=== PATIENT | female | born 1990 | race African-American/Black ===

== ENCOUNTER 2016-10-26 20:57 | Emergency (ER) | payer MEDICAID ==
--- NOTE | 2016-10-26 21:44 | ED Physician Documentation ---
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 She has subsequently developed other symptoms including whole body pain, headache, nausea and vomiting and diarrhea that has pain in the stomach that is relieved by vomiting. She has been sick enough that she is unable to get out of bed to care for her 5 year old son. Review of Systems Constitutional: reports: Fever, Chills Eyes: denies: Decreased vision Ears: denies: Ear pain Nose: reports: Congestion Throat: denies: Sore throat Cardiac: denies: Chest pain / pressure, Palpitations Respiratory: denies: Dyspnea, Cough GI: reports: Abdominal Pain, Nausea, Vomiting : reports: Dysuria, Frequency Skin: denies: Rash Musculoskeletal: reports: Back pain. denies: Neck pain, Extremity pain Neurologic: reports: Generalized weakness. 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 : None HEENT: None Psych: None Musculoskeletal: None Derm: None - Past Surgical History Past Surgical History: Yes - Present Medications Home Medications: Ambulatory Orders Medication Instructions Recorded Confirmed HYDROcod/ACETAM 5/325 [[place] 5/325] 1 - 2 ea PO Q6H PRN #15 tablet 10/27/16 Ondansetron Odt [Zofran] 4 mg TL Q6H PRN #10 tablet 10/27/16 Sulfamethoxazole/Trimethoprim 1 each PO BID #14 tablet 10/27/16 [Sulfamethoxazole-Tmp Ds Tablet] - Allergies Allergies/Adverse Reactions: Allergies Allergy/AdvReac Type Severity Reaction Status Date / Time No Known Drug Allergies Allergy Verified 10/26/16 21:03 - Social History Does the pt smoke?: Yes Smoking Status: Current every day smoker Does the pt drink ETOH?: No Does the pt have substance abuse?: No - Immunizations Immunizations are current?: No - POLST Patient has POLST: No PD ED PE NORMAL - Vitals Vital signs reviewed: Yes (normal ) - General General: Alert and oriented X 3, No acute distress, Well developed/nourished - HEENT HEENT: Atraumatic, PERRL, EOMI, Ears normal, Moist mucous membranes, Pharynx benign, Dentition benign - Neck Neck: Supple, no meningeal sign, No bony TTP - Cardiac Cardiac: RRR, No murmur - Respiratory Respiratory: No respiratory distress, Clear bilaterally - Abdomen Abdomen: Soft, Other (mild epigastric tenderness. with audible bruit in the midline and extending laterally bilateral to both kidneys. ) - Back Back: No spinal TTP, Other (mild R CVA tenderness) - Derm Derm: Normal color, Warm and dry, No rash - Extremities Extremities: No deformity, No edema - Neuro Neuro: Alert and oriented X 3, emergency technician 2-12 intact, No motor deficit, No sensory deficit, Normal speech - Psych Psych: Normal mood, Normal affect Results - Vitals Vitals: Vital Signs - 24 hr 10/26/16 10/26/16 10/26/16 21:03 22:36 23:55 Temperature 37.4 C 36.5 C Heart Rate 99 77 80 Respiratory 16 100 H 16 Rate Blood Pressure 110/69 114/69 121/76 O2 Saturation 100 15 L 100 10/27/16 10/27/16 00:45 01:06 Temperature 36.5 C 37.5 C Heart Rate 78 83 Respiratory 15 18 Rate Blood Pressure 115/76 121/64 O2 Saturation 100 97 Oxygen O2 Source Room air - Labs Labs: Laboratory Tests 10/26/16 10/26/16 10/26/16 21:48 21:48 21:48 WBC 10.3 RBC 4.30 Hgb 13.2 Hct 38.1 MCV 88.5 MCH 30.6 MCHC 34.6 RDW 14.0 Plt Count 187 MPV 9.0 Neut # Not Reportable Lymph # Not Reportable [place] # Not Reportable Eos # Not Reportable Baso # Not Reportable Absolute Nucleated RBC Not Reportable Total Counted 100 Band Neuts % (Manual) 6 Neutrophils # (Manual) 8.5 H Lymphocytes # (Manual) 0.9 L Monocytes # (Manual) 0.8 Nucleated RBCs Not Reportable Differential Comment MANUAL DIFFERENTIAL Platelet Estimate NORMAL (130-450,000) Platelet Morphology NORMAL APPEARANCE RBC Morph Micro Appear NORMAL APPEARANCE Sodium 131 L Potassium 2.5 L* Chloride 95 L Carbon Dioxide 23 Anion Gap 13.0 BUN 15 Creatinine 1.3 H Estimated GFR (MDRD) 60 L Glucose 97 Calcium 8.5 Total Bilirubin 1.1 H AST 33 ALT 39 Alkaline Phosphatase 49 Troponin I < 0.04 Total Protein 7.8 Albumin 3.3 Globulin 4.5 H Albumin/Globulin Ratio 0.7 L Lipase < 10 L Urine Color Urine Clarity Urine pH Ur Specific [place] Urine Protein Urine Glucose (UA) Urine Ketones Urine Occult Blood Urine Nitrite Urine Bilirubin Urine Urobilinogen Ur Leukocyte Esterase Urine RBC Urine WBC Ur Squamous Epith Cells Urine Bacteria Ur Microscopic Review Urine Culture Comments Urine HCG, Qual 10/26/16 22:10 WBC RBC Hgb Hct MCV MCH MCHC RDW Plt Count MPV Neut # Lymph # [place] # Eos # Baso # Absolute Nucleated RBC Total Counted Band Neuts % (Manual) Neutrophils # (Manual) Lymphocytes # (Manual) Monocytes # (Manual) Nucleated RBCs Differential Comment Platelet Estimate Platelet Morphology RBC Morph Micro Appear Sodium Potassium Chloride Carbon Dioxide Anion Gap BUN Creatinine Estimated GFR (MDRD) Glucose Calcium Total Bilirubin AST ALT Alkaline Phosphatase Troponin I Total Protein Albumin Globulin Albumin/Globulin Ratio Lipase Urine Color YELLOW Urine Clarity CLOUDY Urine pH 6.0 Ur Specific [place] 1.015 Urine Protein 100 H Urine Glucose (UA) NEGATIVE Urine Ketones 15 H Urine Occult Blood MODERATE H Urine Nitrite NEGATIVE Urine Bilirubin NEGATIVE Urine Urobilinogen >=8.0 H Ur Leukocyte Esterase MODERATE H Urine RBC TNTC H Urine WBC >25 H Ur Squamous Epith Cells FEW Squamous Urine Bacteria Many H Ur Microscopic Review INDICATED Urine Culture Comments INDICATED Urine HCG, Qual NEGATIVE - Rads (name of study) CT angio Radiology: Prelim report reviewed (Impression: CT angiogram of the abdomen pelvis: 1. Normal abdomen and pelvis CT angiogram. No aneurysm or dissection. 2. Specifically, both renal arteries are normal. CT abdomen pelvis: 1. Abnormal wedge-shaped left renal perfusion defects. Imaging findings are concerning for pyelonephritis. Renal infarctional felt to be less likely. Correlate clinically. ), EMP read indepedently, See rad report Procedures - Bedside sono Bedside sono by EMP: with the use of bedside ultrasound the aorta and renal takeoffs are imaged and appear symmetric and without obvious dilation or dissection. PD MEDICAL DECISION MAKING - ED course Complexity details: reviewed results, re-evaluated patient, considered differential, d/w patient, d/w family ED course: previously healthy 25 y/o female has been sick for 4 days at home unable to get out of bed to go to work or care for her 5 year old child. She arrives to the ED and does not appear ill and she states this is because of the tylenol she took and when this wears off she has shakes and chills and appears ill. On my initial evaluation exam of the abdomen revealed an audible bruit to the mid abdomen with radiation laterally bilaterally to the renals. I did bedside ultrasound of the aorta and renals and did not find abnormality. Because of her story of strain preceding her symptoms I felt it necessary to image the aorta and this appeared normal with findings suggestive of pyelo and on exam of the urine this was obviously infected. The patient has pain in the right flank, she is dehydrated and she has low K+. She is administered IV saline, rocephin, zofran, potassium bicarbonate, toradal and when the Tylenol wears off Tylenol. She is excused from work for 5 days and encouraged to return to the ED for worsening or no improvement. Departure - Departure Disposition: 01 Home, Self Care Clinical Impression: Pyelonephritis, Hypokalemia Condition: Stable Instructions: ED Diet High Potassium, ED Kidney Infec Female Follow-Up: [facility] [Provider Group] Prescriptions: HYDROcod/ACETAM 5/325 [[place] 5/325] 1 - 2 ea PO Q6H PRN #15 tablet PRN Reason: Pain Sulfamethoxazole/Trimethoprim [Sulfamethoxazole-Tmp Ds Tablet] 1 each PO BID # 14 tablet Ondansetron Odt [Zofran] 4 mg TL Q6H PRN #10 tablet PRN Reason: Nausea / Vomiting Forms: Activity restrictions
[2016-10-26 21:54] LABS: BASOPHILS % (AUTO) 0.2 %; UNCORRECTED WHITE BLOOD COUNT 10.3 x10^3/uL; WHITE BLOOD COUNT 10.3 x10^3/uL (4.8-10.8)
[2016-10-26] MEDS ORDERED: POTASSIUM BICARB 25 MEQ TABLET PO STA (22:29)
[2016-10-26 22:32] LABS: BILIRUBIN,URINE NEGATIVE (NEGATIVE)
[2016-10-26 22:33] LABS: HCG UR QUAL NEGATIVE; UA w/ MICROSCOPIC CHARGE YES
[2016-10-26 22:34] LABS: ALBUMIN/GLOBULIN RATIO 0.7 (1.0-2.2); BILIRUBIN,TOTAL 1.1 mg/dL (0.2-1.0); BUN - BLOOD UREA NITROGEN 15 mg/dL (6-20); CALCIUM 8.5 mg/dL (8.5-10.3); CARBON DIOXIDE - CO2 23 mmol/L (21-32); CHLORIDE 95 mmol/L (101-111); CREATININE 1.3 mg/dL (0.4-1.0); GFR - MDRD 60 (>89); GLUCOSE 97 mg/dL (70-100); SODIUM 131 mmol/L (135-145); TOTAL PROTEIN 7.8 g/dL (6.7-8.2)
[2016-10-26 22:35] LABS: POTASSIUM 2.5 mmol/L (3.5-5.0)
[2016-10-26] MEDS ORDERED: POTASSIUM BICARB 25 MEQ TABLET PO ONE (22:36)
[2016-10-26] MEDS ORDERED: SODIUM CHLORIDE 0.9% 1,000 ML IV ONE ×2 (22:36→22:41)
[2016-10-26 22:38] LABS: HCT - HEMATOCRIT 38.1 % (37.0-47.0); HGB - HEMOGLOBIN 13.2 g/dL (12.0-16.0); LYMPHOCYTES % (AUTO) 7.3 %; MEAN CORPUSCULAR HEMOGLOBIN 30.6 pg (27.0-31.0); MEAN CORPUSCULAR HGB CONC 34.6 g/dL (32.0-36.0); MEAN CORPUSCULAR VOLUME 88.5 fL (81.0-99.0); MONOCYTES % (AUTO) 19.9 %; NEUTROPHILS % (AUTO) 72.6 %
[2016-10-26 22:56] LABS: UR CULTURE IF IND INDICATED; WBC,URINE >25 /HPF (0-5)
[2016-10-26] MEDS ORDERED: IOPAMIDOL-300 100 ML VIAL IVP ONE (23:19)
[2016-10-26 23:24] LABS: BAND NEUTROPHILS % (MANUAL) 6 %; LIPASE < 10 U/L (22-51); LYMPHOCYTES % (MANUAL) 9 %; NEUTROPHILS % (MANUAL) 77 %; NP AUTO DIFFERENTIAL? YES; NP MAN DIFFERENTIAL? NO; PLATELET ESTIMATE, MANUAL NORMAL (130-450,000) (NORMAL); PLATELET MORPHOLOGY NORMAL APPEARANCE (NORMAL); TOTAL CELLS COUNTED 100
--- NOTE | 2016-10-26 23:56 | CT Preliminary Report ---
Exam: CT Abdomen/Pelvis Angio IMPRESSION: CT angiogram of the abdomen and pelvis: 1. Normal abdomen and pelvis CT angiogram. No aneurysm or dissection. 2. Specifically, both renal arteries are normal. CT abdomen and pelvis: 1. Abnormal wedge-shaped left renal perfusion defects. Imaging findings are concerning for pyelonephr itis. Renal infarcts are felt to be less likely. Correlate clinically. [facility] SITE ID: [id number]
--- NOTE | 2016-10-26 23:59 | CT Report ---
EXAM: CT ANGIOGRAM ABDOMEN AND PELVIS WITH CONTRAST EXAM DATE: 10/26/2016 11:17 PM. CLINICAL HISTORY: Abdominal pain bruit across aorta and both renal. COMPARISONS: None. TECHNIQUE: Routine helical CT angiogram imaging was performed through the abdomen and pelvis in the a rterial phase. IV contrast: 100 cc [id number]. Enteric contrast: No. Reconstructions: Coronal, sagitt al, and 3D MIP reconstructions. In accordance with CT protocol optimization, one or more of the following dose reduction techniques w ere utilized for this exam: automated exposure control, adjustment of mA and/or KV based on patient s ize, or use of iterative reconstructive technique. FINDINGS: Vasculature: Normal. No aneurysm, dissection, or significant atherosclerotic disease of the abdominal aorta and iliac arteries. The visualized mesenteric and solid organ vascular structures are also wit hin normal limits. Lung Bases: Normal. Abdominal Solid Organs: Abnormal wedge-shaped perfusion abnormalities in the left kidney with asymmet yolie enlargement of the left kidney. Mild left perinephric fat stranding. No left renal enhancing mass , stones or hydronephrosis. Otherwise, the liver, spleen, pancreas, adrenal glands, gallbladder and r ight kidney are normal in size and demonstrate no masses or abnormal enhancement. Peritoneal Cavity: Normal. No free fluid, free air, or acute inflammatory process. Pelvic Organs: Trace fluid is present in the pelvis. Right ovarian cyst is noted. The bladder and vis ualized pelvic organs are within normal limits. Bones: No significant abnormality. Other: None. IMPRESSION: CT angiogram of the abdomen and pelvis: 1. Normal abdomen and pelvis CT angiogram. No aneurysm or dissection. 2. Specifically, both renal arteries are normal. CT abdomen and pelvis: 1. Abnormal wedge-shaped left renal perfusion defects. Imaging findings are concerning for pyelonephr itis. Renal infarcts are felt to be less likely. Correlate clinically. [facility] Referring Provider Line: [phone] SITE ID: [id number]
[2016-10-27] MEDS ORDERED: ONDANSETRON 4 MG/2 ML VIAL IVP STA (00:09)
[2016-10-27] MEDS ORDERED: cefTRIAXone 1 GM in SODIUM CHLORIDE 0.9% MINIBAG 100 ML IV STA (00:09)
[2016-10-27] MEDS ORDERED: SODIUM CHLORIDE 0.9% MINIBAG 100 ML IV ONE (00:11)
[2016-10-27] MEDS ORDERED: ONDANSETRON 4 MG/2 ML VIAL ONE (00:11)
[2016-10-27] MEDS ORDERED: cefTRIAXone 1 GM VIAL ONE (00:11)
[2016-10-27] MEDS ORDERED: POTASSIUM BICARB 25 MEQ TABLET PO STA (00:42)
[2016-10-27] MEDS ORDERED: POTASSIUM BICARB 25 MEQ TABLET PO ONE (00:53)
[2016-10-27] MEDS ORDERED: KETOROLAC 60 MG/2 ML VIAL IVP STA (01:47)
[2016-10-27] MEDS ORDERED: HYDROcod/ACET 5/325 Prepack 6 PO ONE ×2 (01:47→01:53)
[2016-10-27] MEDS ORDERED: KETOROLAC 30 MG/ML VIAL ONE (01:52)
[2016-10-27] MEDS ORDERED: ACETAMINOPHEN 325 MG TABLET PO ONE (02:00)
[2016-10-27] MEDS ORDERED: ONDANSETRON ODT 4 MG Prepack 2 TL ONE (02:00)
[2016-10-27] MEDS ORDERED: ACETAMINOPHEN 325 MG TABLET PO STA (02:03)
[2016-10-27] MEDS ORDERED: ONDANSETRON ODT 4 MG Prepack 2 TL PRN (02:03)
[2016-10-27 02:16] VITALS: BP 113/70
== END 2016-10-27 02:16 | disposition home or self-care (01) ==
LOC: ED 20:57
DX: N12 Tubulo-interstitial nephritis, not specified as acute or chronic (principal); E87.6 Hypokalemia; E86.0 Dehydration; F17.200 Nicotine dependence, unspecified, uncomplicated
CPT/HCPCS: 36415; 74174; 80053; 81001; 81025; 83690; 84484; 85025; 87077; 87086; 87181; 96361; 96374; 96375; 99284; A9270; Q9967; 81003

== ENCOUNTER 2016-11-18 16:39 | Emergency (ER) | payer MEDICAID ==
[2016-11-18 16:46] VITALS: BP 112/69
--- NOTE | 2016-11-18 17:29 | ED Physician Documentation ---
PD HPI SKIN - Stated complaint Stated Complaint: R ARMPIT PX - Chief complaint Chief Complaint: Wound - History obtained from History obtained from: Patient - History of Present Illness Timing - onset: How many days ago (several) Timing - duration: Days (several) Timing - details: Gradual onset Pain level max: 8 Pain level now: 8 Location: Other (R axilla) Quality / character: Painful, Swelling Improved by: Other (nothing) Worsened by (comment): COMMENT (palpation) Associated symptoms: No: Fever Contributing factors: No: Exposed to medication, Exposed to food, Exposed to soap / lotion, Exposed to Poison tanvir/oak, Insect bite /sting, Recent illness Similar symptoms before: Diagnosis (abscess) Recently seen: Not recently seen Review of Systems Constitutional: denies: Fever, Chills : denies: Now EGA Skin: denies: Rash Musculoskeletal: denies: Neck pain, Back pain Neurologic: denies: Headache PD PAST MEDICAL HISTORY - Past Medical History Past Medical History: Yes Cardiovascular: None Respiratory: None Neuro: None Endocrine/Autoimmune: None GI: None INTERN RETAIL: 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 : None HEENT: None Psych: None Musculoskeletal: None Derm: None Other Past Medical History: acne inversa - Past Surgical History Past Surgical History: No - Present Medications Home Medications: Ambulatory Orders Medication Instructions Recorded Confirmed Oxycodone HCl/Acetaminophen 1 - 2 each PO Q6H PRN #14 tablet 11/18/16 [Percocet 5-325 mg Tablet] Sulfamethox/Trimeth 800/160 1 each PO BID #14 tablet 11/18/16 [Bactrim Ds 800/160] - Allergies Allergies/Adverse Reactions: Allergies Allergy/AdvReac Type Severity Reaction Status Date / Time acetaminophen [From Vicodin] Allergy Itching Verified 11/18/16 16:46 hydrocodone bitartrate * Allergy Itching Verified 11/18/16 16:46 [From Vicodin] - Social History Does the pt smoke?: Yes Smoking Status: Current every day smoker Does the pt drink ETOH?: No Does the pt have substance abuse?: No - Immunizations Immunizations are current?: No - POLST Patient has POLST: No PD ED PE NORMAL - Vitals Vital signs reviewed: Yes - General General: Alert and oriented X 3, No acute distress - Neck Neck: Supple, no meningeal sign - Cardiac Cardiac: RRR - Respiratory Respiratory: No respiratory distress, Clear bilaterally - Derm Derm: Warm and dry - Extremities Extremities: Other (R axilla - swelling, induration, fluctuance to R axilla. 3x4cm. ) - Neuro Neuro: Alert and oriented X 3 - Psych Psych: Normal mood, Normal affect Results - Vitals Vitals: Vital Signs - 24 hr 11/18/16 16:43 Temperature 37 C Heart Rate 100 Respiratory 16 Rate Blood Pressure 112/69 O2 Saturation 100 Oxygen O2 Source Room air - Labs Labs: Microbiology 11/18/16 18:25 Wound Culture - Preliminary Abscess Procedures - Abscess I&D (location) R axilla Preparation: Confirmed with ultrasound, Chlorhexadine, Lidocaine 2 %, With epi Incision: Incised with scalpel, Purulent drainage, Loculations broken, Irrigated , Packed, Culture obtained Other: Pt tolerated well PD MEDICAL DECISION MAKING - ED course Complexity details: considered differential, d/w patient ED course: Patient is a 25-year-old female who presents to the emergency department with a right axillary abscess. Past history of hidradenitis suppurativa. This was incised and drained. Tolerated well. Will place on antibiotics for home. Patient counseled regarding signs and symptoms for which I believe and urgent re -evaluation would be necessary. Patient with good understanding of and agreement to plan and is comfortable going home at this time This document was made in part using voice recognition software. While efforts are made to proofread this document, sound alike and grammatical errors may occur. Did discuss with the patient following up with a surgeon for her hidradenitis suppurativa. Departure - Departure Disposition: 01 Home, Self Care Clinical Impression: Abscess, Hidradenitis suppurativa Condition: Good Instructions: ED Abscess IandD Follow-Up: your,doctor in 3 days for wound check [Other] Prescriptions: Sulfamethox/Trimeth 800/160 [Bactrim Ds 800/160] 1 each PO BID #14 tablet Oxycodone HCl/Acetaminophen [Percocet 5-325 mg Tablet] 1 - 2 each PO Q6H PRN # 14 tablet PRN Reason: pain Comments: return if you worsen. You should follow up with a surgeon to discuss surgical removal. Discharge Date/Time: 11/18/16 18:33
[2016-11-18] MEDS ORDERED: oxyCOD/ACETAMIN 5 MG/325 MG TABLET PO STA (17:33)
[2016-11-18] MEDS ORDERED: LIDOCAINE 2%-EPI 1:100000 20 ML MDV SUBQ STA (17:33)
[2016-11-18] MEDS ORDERED: oxyCOD/ACETAMIN 5 MG/325 MG TABLET PO ONE (17:40)
[2016-11-18] MEDS ORDERED: LIDOCAINE 2%-EPI 1:100000 20 ML MDV ONE (17:40)
== END 2016-11-18 18:33 | disposition home or self-care (01) ==
LOC: ED 16:39
DX: L73.2 Hidradenitis suppurativa (principal); F17.200 Nicotine dependence, unspecified, uncomplicated
CPT/HCPCS: 10060; 87070; 87205; 99283; A9270

== ENCOUNTER 2017-04-13 19:34 | Emergency (ER) | payer MEDICAID ==
[2017-04-13] MEDS ORDERED: SODIUM CHLORIDE 0.9% 1,000 ML IV ONE (21:52)
[2017-04-13] MEDS ORDERED: ONDANSETRON 4 MG/2 ML VIAL IVP STA (21:52)
--- NOTE | 2017-04-13 21:58 | ED Physician Documentation ---
PD HPI NVD - Stated complaint Stated Complaint: VOMITING,STOMACH PAINS - Chief complaint Chief Complaint: Abd Pain - History obtained from History obtained from: Patient - History of Present Illness Timing - onset: How many weeks ago (1) Timing - duration: Weeks (1) Timing - details: Gradual onset, Now resolved Associated symptoms: Abdominal pain Contributing factors: Other (stress of grandmother dying unexpectedly one month ago) Improved by: Other (nothing) Worsened by: Other (nothing) Similar symptoms before: Diagnosis (pyelo) Recently seen: Not recently seen - Additonal information Additional information: 26-year-old previously healthy female has developed epigastric abdominal pain nausea and vomiting about 1 week ago. She states that preceding this she did have a bit of a panic attack and since that time she has not been able to get control of her nausea and she has not been able to eat or drink much over the past week. She has very dry mucous membranes feels like her tongue is stuck to the top of her mouth and she has had very little urine output.She does note that her grandmother unexpectedly and she has felt some anxiety related to that. She is worried that this may be a stress reaction. Review of Systems Constitutional: reports: Fatigue. denies: Fever, Chills Eyes: denies: Decreased vision Ears: denies: Ear pain Nose: denies: Rhinorrhea / runny nose, Congestion Throat: denies: Sore throat Cardiac: denies: Chest pain / pressure, Palpitations Respiratory: denies: Dyspnea, Cough GI: reports: Abdominal Pain, Nausea, Vomiting. 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 : None HEENT: None Psych: Anxiety, Panic attacks Musculoskeletal: None Derm: None - Past Surgical History Past Surgical History: No - Present Medications Home Medications: Ambulatory Orders Medication Instructions Recorded Confirmed Ondansetron Odt [Zofran] 4 mg TL Q6H PRN #10 tablet 04/14/17 Potassium Chloride 20 meq PO DAILY #20 tablet.er 04/14/17 - Allergies Allergies/Adverse Reactions: Allergies Allergy/AdvReac Type Severity Reaction Status Date / Time acetaminophen [From Vicodin] Allergy Itching Verified 04/13/17 19:51 hydrocodone bitartrate * Allergy Itching Verified 04/13/17 19:51 [From Vicodin] - Social History Does the pt smoke?: Yes Smoking Status: Current every day smoker Does the pt drink ETOH?: No Does the pt have substance abuse?: No - Immunizations Immunizations are current?: No - POLST Patient has POLST: No PD ED PE NORMAL - Vitals Vital signs reviewed: Yes (Hypertensive) - General General: No acute distress, Well developed/nourished - HEENT HEENT: Atraumatic, PERRL, EOMI, Ears normal, Other (Dry mucous membranes) - Neck Neck: Supple, no meningeal sign, No bony TTP - Cardiac Cardiac: RRR, No murmur - Respiratory Respiratory: No respiratory distress, Clear bilaterally - Abdomen Abdomen: Soft, Non tender - Back Back: No CVA TTP, No spinal TTP - Derm Derm: Normal color, Warm and dry, No rash - Extremities Extremities: No deformity, No edema - Neuro Neuro: No motor deficit, No sensory deficit Eye Opening: Spontaneous Motor: Obeys Commands Verbal: Oriented GCS Score: 15 - Psych Psych: Normal mood, Normal affect Results - Vitals Vitals: Vital Signs - 24 hr 04/13/17 19:48 Temperature 36.9 C Heart Rate 86 Respiratory 18 Rate Blood Pressure 143/81 H O2 Saturation 100 Oxygen O2 Source Room air - Labs Labs: Laboratory Tests 04/13/17 04/13/17 04/13/17 22:04 22:04 23:01 WBC 10.5 RBC 4.58 Hgb 13.9 Hct 41.2 MCV 90.0 MCH 30.5 MCHC 33.8 RDW 13.2 Plt Count 340 MPV 7.4 L Neut # 7.5 H Lymph # 2.0 [place] # 0.9 Eos # 0.1 Baso # 0.1 Absolute Nucleated RBC 0.00 Nucleated RBC % 0.0 Sodium 133 L Potassium 2.9 L Chloride 97 L Carbon Dioxide 22 Anion Gap 14.0 H BUN 9 Creatinine 0.5 Estimated GFR (MDRD) 178 Glucose 82 Calcium 9.8 Total Bilirubin 0.8 AST 18 ALT 15 Alkaline Phosphatase 36 L Total Protein 8.5 H Albumin 4.7 Globulin 3.8 Albumin/Globulin Ratio 1.2 Lipase 14 L Urine Color DARK YELLOW Urine Clarity CLEAR Urine pH 6.0 Ur Specific [place] >=1.030 H Urine Protein TRACE Urine Glucose (UA) NEGATIVE Urine Ketones >=80 H Urine Occult Blood NEGATIVE Urine Nitrite NEGATIVE Urine Bilirubin NEGATIVE Urine Urobilinogen 1 (NORMAL) Ur Leukocyte Esterase TRACE H Urine RBC 0-5 Urine WBC 6-10 H Urine WBC Clumps PRESENT Ur Squamous Epith Cells FEW Squamous Urine Bacteria None Seen Urine Mucus Marked Strands Ur Microscopic Review INDICATED Urine Culture Comments INDICATED Urine HCG, Qual POSITIVE Procedures - IVC sono (time) 0100 Bedside IVC sono: IVC measures (cm) (0.67), IVC collapsed c insp (cm) (complete) , Significant dehydration (after 1 liter in) PD MEDICAL DECISION MAKING - ED course Complexity details: reviewed old records, reviewed results, re-evaluated patient , considered differential, d/w patient ED course: 26-year-old female with nausea and vomiting over the past week has not been able to control or vomiting enough to stay hydrated. She is significantly dehydrated here in the emergency department an IVs saline is begun she also has low potassium. She is and she thinks maybe 5-8 weeks along. She is planning on terminating. Here in the emergency department bedside ultrasound of the uterus reveals an 8 week gestational sac without evidence of pole. I believe she has a blighted ovum. I discussed this finding with her and recommend [facility]. After 1 L of saline in her IVC is still completely collapsing with significant dehydration and further saline is administered. The epigastric pain was relieved with the viscous lido and mylanta. Departure - Departure Disposition: 01 Home, Self Care Clinical Impression: Dehydration, Blighted ovum, Hypokalemia Condition: Stable Instructions: Blighted Ovum, ED Dehydration, ED Diet High Potassium Follow-Up: [facility] [Provider Group] Prescriptions: Ondansetron Odt [Zofran] 4 mg TL Q6H PRN #10 tablet PRN Reason: Nausea / Vomiting Potassium Chloride 20 meq PO DAILY #20 tablet.er
[2017-04-13 22:10] LABS: BASOPHILS # (AUTO) 0.1 10^3/uL (0.0-0.1); BASOPHILS % (AUTO) 0.5 %; EOSINOPHILS # (AUTO) 0.1 10^3/uL (0.0-0.7); EOSINOPHILS % (AUTO) 0.7 %; HCT - HEMATOCRIT 41.2 % (37.0-47.0); HGB - HEMOGLOBIN 13.9 g/dL (12.0-16.0); LYMPHOCYTES % (AUTO) 19.1 %; MEAN CORPUSCULAR HEMOGLOBIN 30.5 pg (27.0-31.0); MEAN CORPUSCULAR HGB CONC 33.8 g/dL (32.0-36.0); MEAN PLATELET VOLUME 7.4 fL (7.9-10.8); MONOCYTES # (AUTO) 0.9 10^3/uL (0.0-1.0); MONOCYTES % (AUTO) 8.3 %; NEUTROPHILS # (AUTO) 7.5 10^3/uL (1.5-6.6); NEUTROPHILS % (AUTO) 71.4 %; RED BLOOD COUNT 4.58 10^6/uL (4.20-5.40); RED CELL DISTRIBUTION WIDTH 13.2 % (12.0-15.0); UNCORRECTED WHITE BLOOD COUNT 10.5 x10^3/uL; WHITE BLOOD COUNT 10.5 x10^3/uL (4.8-10.8)
[2017-04-13] MEDS ORDERED: ONDANSETRON 4 MG/2 ML VIAL ONE (22:12)
[2017-04-13 22:23] LABS: ALBUMIN/GLOBULIN RATIO 1.2 (1.0-2.2); BILIRUBIN,TOTAL 0.8 mg/dL (0.2-1.0); CALCIUM 9.8 mg/dL (8.5-10.3); CREATININE 0.5 mg/dL (0.4-1.0); POTASSIUM 2.9 mmol/L (3.5-5.0); TOTAL PROTEIN 8.5 g/dL (6.7-8.2)
[2017-04-13] MEDS ORDERED: POTASSIUM BICARB 25 MEQ TABLET PO STA (23:06)
[2017-04-13] MEDS ORDERED: POTASSIUM BICARB 25 MEQ TABLET PO ONE (23:17)
[2017-04-13 23:18] LABS: BILIRUBIN,URINE NEGATIVE (NEGATIVE); HCG UR QUAL POSITIVE; UA w/ MICROSCOPIC CHARGE YES
[2017-04-13 23:21] LABS: UR CULTURE IF IND INDICATED
[2017-04-14] MEDS ORDERED: LIDOCAINE VISCOUS 2% 15 ML UDC MM STA (00:44)
[2017-04-14] MEDS ORDERED: ONDANSETRON ODT 4 MG TABLET TL STA (00:45)
[2017-04-14] MEDS ORDERED: MAG HYDROX/AL HYDROX/SIMETH 30 ML UDC PO STA (00:45)
[2017-04-14] MEDS ORDERED: LIDOCAINE VISCOUS 2% 15 ML UDC MM ONE (00:57)
[2017-04-14] MEDS ORDERED: MAG HYDROX/AL HYDROX/SIMETH 30 ML UDC ONE (00:57)
[2017-04-14] MEDS ORDERED: ONDANSETRON ODT 4 MG TABLET ONE (00:57)
[2017-04-14] MEDS ORDERED: SODIUM CHLORIDE 0.9% 1,000 ML IV ONE (01:08)
[2017-04-14] MEDS ORDERED: POTASSIUM CHLORIDE 20 MEQ TABLET PO STA ×2 (02:24→02:56)
[2017-04-14] MEDS ORDERED: POTASSIUM CHLOR 10 MEQ/100 ML 10 MEQ/100 ML BAG IV ONE ×2 (02:24→02:35)
[2017-04-14] MEDS ORDERED: POTASSIUM CHLORIDE 20 MEQ TABLET PO ONE ×3 (02:35→03:17)
[2017-04-14 04:22] VITALS: BP 113/73
== END 2017-04-14 04:22 | disposition home or self-care (01) ==
LOC: ED 19:34
DX: E86.0 Dehydration (principal); O02.0 Blighted ovum and nonhydatidiform mole; E87.6 Hypokalemia; F17.200 Nicotine dependence, unspecified, uncomplicated; F43.8 Other reactions to severe stress
CPT/HCPCS: 36415; 80053; 81001; 81025; 83690; 85025; 87086; 96361; 96374; 96375; 99283; 99284; A9270; Q0162; 81003

== ENCOUNTER 2020-07-20 13:18 | Outpatient (CLI) | payer MEDICAID ==
--- NOTE | 2020-07-20 15:37 | Ultrasound Report ---
PROCEDURE: Pelvic Limited or F/U INDICATIONS: ENLARGED LYMPH NODES TECHNIQUE: Real-time transabdominal scanning was performed of the inguinal canal bilaterally, with image documen tation. COMPARISON: None. FINDINGS: There are multiple bilateral enlarged groin lymph nodes present, several measuring greater than 1 cm in maximal AP diameter as well as several lymph nodes have a benign abnormal appearance with mild cor tical irregularity and no central fatty hilum. IMPRESSION: Bilateral groin lymphadenopathy with several nodes having abnormal morphology with corti amado irregularity and no central fatty hilum. Although adenopathy may be reactive; neoplastic lymphade nopathy cannot be excluded and close clinical correlation is recommended. If indicated, CT could be p erformed for further assessment or alternatively sonographically directed core biopsy. Reviewed by: RDAHA Martinez on 07/20/2020 3:35 PM PST Approved by: Philly Shanks MD on 07/20/2020 3:35 PM PST Station ID: [id number]
== END 2020-07-20 13:19 | disposition home or self-care (01) ==
LOC: DI 13:18
PROVIDERS: ATTEND Obstetrics & Gynecology
DX: R59.0 Localized enlarged lymph nodes (principal)

== ENCOUNTER 2020-07-25 08:14 | Outpatient (CLI) | payer MEDICAID ==
--- NOTE | 2020-07-26 15:07 | Mammography Report ---
BILATERAL DIGITAL DIAGNOSTIC MAMMOGRAM 3D/2D: 07/25/2020 CLINICAL: Baseline exam. Pt has enlarged nipple. No prior exams were available for comparison. The tissue of both breasts is extremely dense, which lowers the sensitivity of mammography. The right nipple is enalrged compared to the contralateral side. No associated calcifications. No significant masses, calcifications, or other findings are seen in either breast. IMPRESSION: INCOMPLETE: NEEDS ADDITIONAL IMAGING EVALUATION There is no abnormality seen in the right breast to correspond with the nipple enlargement. Ultrasoun d is recommended for full evaluation of the ribght nipple. This was performed immediately following t his exam. This exam was interpreted at Station ID: [id number]. NOTE: For mammograms, a report in lay terms will be sent to the patient. Approximately 15% of breast malignancies will not be visualized mammographically. In the management of a palpable breast mass, a negative mammogram must not discourage biopsy of a clinically suspicious lesion. Electronically Signed By: Kelly flores/:07/25/2020 09:50:46 ACR BI-RADS Category 0: Incomplete 3340F PARENCHYMAL PATTERN: (VD) - The breast(s) demonstrate(s) extremely dense parenchyma, limiting the sen sitivity of mammography. BI-RADS CATEGORY: (0) - 0 Ultrasound [id number] Immediate follow-up LATERALITY: (B)
--- NOTE | 2020-07-26 15:09 | Ultrasound Report ---
LIMITED ULTRASOUND OF RIGHT BREAST: 07/25/2020 CLINICAL: Enlarged right nipple. Comparison is made to exam dated: 07/25/2020 mammogram - [facility]. Color flow ultrasound of the right breast retroareolar was performed. Delgado scale images of the real- time examination were reviewed. The right nipple appears larger than the left on ultrasound, but without intrinsic mass, subjacent ma ss, or increased vascularity. No dilated ducts. IMPRESSION: INCOMPLETE: NEEDS ADDITIONAL IMAGING EVALUATION There is no discrete sonographic finding to explain the patient's right nipple enlargement. Further evaluation with breast MRI is recommended to evaluate for occult nipple pathology such as adenoma Findings and recommendations were discussed with the patient by Dr. Styles at time of exam. This exam was interpreted at Station ID: [id number]. Electronically Signed By: Kelly flores/:07/25/2020 11:33:54 Ultrasound BI-RADS: 0 Indeterminate BI-RADS CATEGORY: (0) - 0 MRI [id number] Immediate follow-up LATERALITY: (B)
== END 2020-07-25 08:15 | disposition home or self-care (01) ==
LOC: DI 08:14
PROVIDERS: ATTEND Obstetrics & Gynecology
DX: N62 Hypertrophy of breast (principal)

== ENCOUNTER 2021-05-25 15:56 | Outpatient (CLI) | payer MEDICAID ==
[2021-05-26 00:07] LABS: BACTERIAL VAGINOSIS DNA NEGATIVE (NEGATIVE); CANDIDA GLABRATA DNA NEGATIVE (NEGATIVE); CANDIDA GROUP DNA POSITIVE (NEGATIVE); CANDIDA KRUSEI DNA NEGATIVE (NEGATIVE); TRICHOMONAS VAGINALIS DNA NEGATIVE (NEGATIVE)
== END 2021-05-25 15:57 | disposition home or self-care (01) ==
LOC: LAB 15:56
PROVIDERS: ATTEND Obstetrics & Gynecology
DX: N76.0 Acute vaginitis (principal)
CPT/HCPCS: 87661; 87801